=== PATIENT | female | born 1980 | race Two or more races ===

== ENCOUNTER 2020-06-08 10:34 | Outpatient (CLI) | payer OTHER | END 2020-06-08 13:51 | disposition home or self-care (01) | LOC: RX STUDY 10:34 | PROVIDERS: ATTEND Obstetrics & Gynecology | DX: R10.2 Pelvic and perineal pain (principal); N91.0 Primary amenorrhea ==

== ENCOUNTER 2021-02-22 22:19 | Outpatient (CLI) | payer OTHER ==
[2021-02-22] MEDS ORDERED: LABETALOL HCL200 MG PO (22:44)
[2021-02-22] MEDS ORDERED: NIFEDIPINE20 MG (22:45)
[2021-02-22] MEDS ORDERED: NIFEDIPINE20 MG PO (22:45)
[2021-02-22] MEDS ORDERED: CHILDREN'S ASPI81 MG PO (22:45)
[2021-02-22] MEDS ORDERED: PRENATAL CAPLE1 EAC1 PO (22:46)
[2021-02-22] MEDS ORDERED: FOLIC ACID20 MG PO (22:46)
== END 2021-02-23 09:34 | disposition home or self-care (01) ==
LOC: OBS/DEL 22:19
PROVIDERS: ATTEND Obstetrics & Gynecology
DX: O26.892 Other specified pregnancy related conditions, second trimester (principal); M54.5 Low back pain; Z3A.23 23 weeks gestation of pregnancy

== ENCOUNTER 2021-04-26 05:21 | Inpatient (IN) | payer OTHER ==
[~2021-04-26] VITALS: Ht 167.6 cm; Wt 3.6 kg
[~2021-04-26 05:21] MED LIST: CHILDREN'S ASPI81 MG PO; FOLIC ACID20 MG PO; LABETALOL HCL200 MG PO; NIFEDIPINE20 MG; NIFEDIPINE20 MG PO; PRENATAL CAPLE1 EAC1 PO
[2021-04-26] MEDS ORDERED: CHILDREN'S ASPI81 MG (06:43)
[2021-04-26] MEDS ORDERED: ATABEX DHA 200200 MG (06:43)
[2021-04-26] MEDS ORDERED: FOLIC ACID20 MG (06:43)
[2021-04-26] MEDS ORDERED: LABETALOL HCL200 MG (06:44)
== END 2021-04-28 09:57 | disposition home or self-care (01) | DRG 787 ==
LOC: OB/GYN 05:21 → LDR 05:21 → OB/GYN 11:40
PROVIDERS: ADMIT Obstetrics & Gynecology; ATTEND Obstetrics & Gynecology
PROC: 4A1HXFZ Monitoring of Products of Conception, Cardiac Rhythm, External Approach (ICD-10-PCS; 2021-04-26)
PROC: 3E033VJ Introduction of Other Hormone into Peripheral Vein, Percutaneous Approach (ICD-10-PCS; 2021-04-26)
PROC: 10D00Z1 Extraction of Products of Conception, Low, Open Approach (ICD-10-PCS; principal; 2021-04-26 12:00)
DX: O77.0 Labor and delivery complicated by meconium in amniotic fluid (principal); O10.02 Pre-existing essential hypertension complicating childbirth; O76 Abnormality in fetal heart rate and rhythm complicating labor and delivery; Z3A.40 40 weeks gestation of pregnancy; Z37.0 Single live birth; Z20.822 Contact with and (suspected) exposure to COVID-19

== ENCOUNTER 2021-05-03 11:53 | Outpatient (CLI) | payer OTHER ==
[~2021-05-03 11:53] MED LIST changes: +ATABEX DHA 200200 MG; +CHILDREN'S ASPI81 MG; +FOLIC ACID20 MG; +LABETALOL HCL200 MG
== END 2021-05-03 11:54 | disposition home or self-care (01) ==
LOC: LAB 11:53
PROVIDERS: ATTEND Pediatrics Neonatal-Perinatal Medicine
DX: Z03.818 Encounter for observation for suspected exposure to other biological agents ruled out (principal)